=== PATIENT | female | born 1980 | race Caucasian/White ===

== ENCOUNTER → 2017-08-23 15:40 | Outpatient (CLI) | payer MEDICAID, SELFPAY ==
[2017-07-03 13:20] VITALS: BP 123/78; BP 125/88
[2017-08-06 07:24] VITALS: BMI 29.6
[2017-08-06 08:50] VITALS: BP 119/85
--- NOTE | 2017-08-23 15:42 | CT_ITS ---
STUDY: CT ABDOMEN AND PELVIS WITH CONTRAST REASON FOR EXAM: Female, 37 years old. Lower abdominal pain and bloating RADIATION DOSAGE (If Supplied By Facility): CTDIvol = ( 15.20 ) mGy, DLP = ( 1074.54 ) mGycm TECHNIQUE: Transaxial images were obtained from the dome of the diaphragm to the symphysis pubis without oral contrast. 100 ml of Isovue 300 contrast was administered. Sagittal and coronal images were reconstructed. Individualized dose optimization techniques were used for this CT. COMPARISON: None. FINDINGS: The visualized lung bases are unremarkable. The visualized portions of the heart are within normal limits. Normal liver. Normal gallbladder and extrahepatic biliary system. Granulomatous calcification in the spleen. Normal pancreas. Normal bilateral adrenal glands. Normal right kidney. Normal left kidney. Normal visualized stomach. Normal small intestine. Normal colon. The appendix is visualized and appears normal. Normal abdominal aorta. Possible 1.6 cm calcified aneurysm of splenic artery. Normal inferior vena cava. Normal retroperitoneum. Normal urinary bladder. Mild endometrial thickening/fluid. There is evidence of tubal ligation. There is a left adnexal 1.9 cm cystic nodule. Normal abdominal wall. Normal osseous structures. CT/Abdomen/Pelvis WITH Contrast IMPRESSION: Mild endometrial thickening/fluid. Possible calcified aneurysm of the splenic artery. Left adnexal cystic nodule. Correlate with ultrasound if needed. Electronically Signed: Nicola Patel DO at 11:32 EST Tel [phone], Service support ,
== END ==
PROVIDERS: Visit Provider Surgery
DX: R93.8 Abnormal findings on diagnostic imaging of other specified body structures (principal); R19.09 Other intra-abdominal and pelvic swelling, mass and lump; R10.32 Left lower quadrant pain; R19.7 Diarrhea, unspecified
CPT/HCPCS: 74177; Q9967

== ENCOUNTER 2018-01-14 13:46 | Emergency (ER) | payer MEDICAID, SELFPAY ==
[2018-01-14 13:47] VITALS: BP 130/84; PULSE 74; RESP 16; TEMP 36.9; O2SAT 99; BMI 30.2
--- NOTE | 2018-01-14 13:59 | RAD_ITS ---
STUDY: X-RAY - LEFT ANKLE REASON FOR EXAM: Female, 37 years old. Increasing lateral ankle pain. TECHNIQUE: 3 view(s) of the ankle. COMPARISON: None. FINDINGS: Normal visualized distal tibia and fibula. Normal medial and lateral malleoli. Normal tibiotalar articulation and ankle mortise. Normal visualized talus and calcaneus. The visualized subtalar, talonavicular, calcaneocuboid and tarsal articulations are normal. The soft tissue structures are unremarkable. RAD/Ankle min 3 Views IMPRESSION: Normal x-ray examination of the ankle. Electronically Signed: Rashawn Marie MD at 14:38 EDT Tel [phone], Service support ,
--- NOTE | 2018-01-14 14:25 | ED.DCSUM_ITS ---
- ER Visit Summary Date of Service: 01/14/18 Chief Complaint: Left ankle pain History of Present Illness: The patient is a 37 F with no primary care physician. She reports that she has had problems with her left ankle off and on for the past years since tripping over a tree stump. She reports that 2 days ago she worked for 7 hours and then was on her feet all night at a concert. She reports that she woke up at 4:00 in the morning yesterday and had sharp pain in her left ankle. States it is 8 out of 10 with walking and she is pain-free at rest. She taken ibuprofen as well. She denies any known injury. No fall or MVA. Physical Examination: Vitals: Stable. Afebrile. General: Well-nourished and well-developed. Head: Normocephalic atraumatic. Neck: Supple, no lymphadenopathy. No JVD. Nontender. Cardiovascular: Regular rate and rhythm. No murmurs. Respiratory: No respiratory distress. Clear to auscultation bilaterally. Abdominal: Soft, nontender, nondistended, normal bowel sounds. No guarding, rebound, or peritoneal signs. Back: Nontender. Extremities: Mild tenderness palpation to both the medial lateral malleoli. No soft tissue swelling. No contusion. 2+ dorsalis pedis pulse. Skin: Normal color, no rash. Neurologic: Alert and oriented ?3. Cranial nerves II through XII are intact. Normal strength and sensation. Psych: Normal affect. Test Results: Ankle x-ray is negative. Emergency Department Course and Treatment: Patient was treated with naproxen and is resting comfortably. Treatment Plan: Patient will be discharged naproxen. Instructed follow-up Dr. Zafar in 1 week if not improving. Disposition: To home in improved and stable condition. Impression: 1. Left ankle sprain. This note was generated with [employer] dictation software. It may contain incorrect words, spelling, and punctuation that were not noted in review of the chart prior to signing ED Disposition - Plan for ED Patient: Chief Complaint: Lower Extremity Injury Instructions: ED Sprain Ankle W X Ray Prescriptions: Naproxen [Naprosyn] 500 mg PO BID #14 tablet Referrals: Jed Zafar DPM [STAFF PHYSICIAN] - 1 Week if not improving
== END 2018-01-14 14:40 | disposition home or self-care (01) ==
PROVIDERS: Emergency Provider Emergency Medicine
DX: S93.402A Sprain of unspecified ligament of left ankle, initial encounter (principal); W22.8XXA Striking against or struck by other objects, initial encounter; Y93.9 Activity, unspecified; Y92.9 Unspecified place or not applicable
CPT/HCPCS: 73610; 99282

== ENCOUNTER 2018-07-11 23:41 | Emergency (ER) | payer MEDICAID, SELFPAY ==
[2018-07-11 23:42] VITALS: BP 119/80; PULSE 73; RESP 16; TEMP 36.2; O2SAT 100; BMI 31.0
--- NOTE | 2018-07-12 00:25 | RAD_ITS ---
HISTORY: PT WITH LEFT FOOT SWELLING AND PAIN. INJURY 2 YEARS AGO. UNABLE TO APPLY PRESSURE WITHOUT PAIN. COMPARISON: 01/14/2018 FINDINGS: XR left Ankle Min 3 Views: With comparison to previous, no significant change. No fracture, dislocation, or acute osseous abnormality. The tibiotalar joint space appears preserved. As visualized, the soft tissues are unremarkable. RAD/Ankle min 3 Views IMPRESSION: Normal left ankle. No significant change. at 0104 Reported and signed by: Hamzah Blankenship MD Electronically Signed: Hamzah Blankenship, at 1:03 EST Tel , Service support ,
--- NOTE | 2018-07-12 01:17 | ED.VISSUMM ---
- ER Visit Summary Date of Service: 07/12/18 Chief Complaint:Left foot pain History of Present Illness: The patient is a 38 F who presents with left foot pain. She states she injured it 2 years ago and has had chronic pain ever since then. She states that she had x-rays 2 years ago but has not been seen since that time. However review of records show a visit in January she did have an x-ray of her ankle at that time. She states that over the past couple of days she has had increased sharp pain in her left foot and it is difficult to bear weight. No recent injury. Review of systems otherwise negative. Physical Examination: Afebrile vitals are normal Moist mucous membranes Heart regular rate and rhythm No respiratory rest Patient has pain on palpation of the anterior left ankle she has no foot tenderness no soft tissue swelling she does have active full range of motion she has brisk capillary refill normal sensation light touch in a palpable dorsalis pedis pulse Test Results: Left ankle x-ray is normal Emergency Department Course and Treatment: Although patient describes her symptoms as left foot pain her tenderness in the area she indicates her pain is actually her anterior ankle. Ankle x-ray normal as above. Given that she reports it is difficult to bear weight due to pain she was given crutches. She was given a prescription for naproxen. She stands to return for new or worsening symptoms and was discharged. Treatment Plan: [] Disposition: Discharge Impression: Chronic left ankle pain This note was generated with [employer] dictation software. It may contain incorrect words, spelling, and punctuation that were not noted in review of the chart prior to signing ED Disposition - Plan for ED Patient: Chief Complaint: Lower Extremity Injury Referrals: Care Physician,No Primary [Primary Care Provider] -
--- NOTE | 2018-07-12 01:19 | ED.DEP ---
ED Disposition - Plan for ED Patient: Chief Complaint: Lower Extremity Injury Instructions: ED Chronic Pain Management Prescriptions: Naproxen [Naprosyn] 500 mg PO BID #14 tab Referrals: Care Physician,No Primary [Primary Care Provider] -
[2018-07-12 01:35] VITALS: PULSE 83; RESP 16; O2SAT 98
== END 2018-07-12 01:37 | disposition home or self-care (01) ==
PROVIDERS: Emergency Provider Emergency Medicine
DX: M25.572 Pain in left ankle and joints of left foot (principal); G89.29 Other chronic pain
CPT/HCPCS: 73610; 99282

== ENCOUNTER 2020-12-10 17:56 | Emergency (ER) | payer SELFPAY ==
[2020-12-10 17:57] VITALS: BP 138/88; PULSE 76; RESP 16; TEMP 36.3; O2SAT 98; BMI 29.0
--- NOTE | 2020-12-10 18:16 | EX.ED.DYSGE1 ---
HPI History of Present Illness Chief Complaint: Dizziness Narrative Narrative: Patient presenting with vertiginous symptoms. She states she has a history of vertigo. She did not take any medicine prior to arrival. She describes her dizziness as vertiginous in nature. Is worse with head turning. She denies any head trauma. Patient does admit to recent congestion and sore throat. He has not had any fever or chills. She denies loss of taste or smell. She denies fevers. Patient states she has no history of seasonal allergies. [facility] Medical History hemorrhoid Rectal bleed Home Medications naproxen 500 mg PO BID #14 tab 01/14/18 [Rx Last Taken Unknown] naproxen 500 mg PO BID #14 tab 07/12/18 [Rx Last Taken Unknown] meclizine 25 mg PO TID PRN #20 tab 12/10/20 [Rx Last Taken Unknown] Allergy/AdvReac Type Severity Reaction Status Date / Time acetaminophen [From Percocet] Allergy Unknown Verified 12/10/20 17:57 oxycodone [From Percocet] Allergy Unknown Verified 12/10/20 17:57 latex Allergy Mild Rash Uncoded 12/10/20 17:57 Family History Mother Asthma Diabetes CAD (coronary artery disease) Surgical History history of essure Social History Smoking Status: Current every day smoker alcohol intake: current alcohol intake frequency: 3 or more drinks per day Alcohol type: beer details: at least 10 beers per day ROS ROS ED Constitutional Constitutional ED: Denies chills, fever(s) or sweats Eyes Eyes: Denies blurry vision or change in vision ENT ENT ED: Reports sore throat and other Details: Nasal congestion ; Denies ear pain Cardiovascular Cardiovascular: Denies chest pain, palpitations or racing heartbeat Respiratory/Chest Respiratory/Chest: Denies cough, dyspnea or sputum Gastrointestinal Gastrointestinal: Denies abdominal pain, constipation, diarrhea, nausea or vomiting Genitourinary Genitourinary ED: Denies dysuria, hematuria or urinary frequency Musculoskeletal Musculoskeletal: Denies arthralgias, myalgias or neck pain Integumentary Denies abscess, Abrasions or rash Neurologic Neurologic: Denies headache(s), paresthesias or weakness Psychiatric Psychiatric: Denies anxiety, depression, suicidal ideation or suicidal thoughts Endocrine Endocrinology: Denies polydipsia or polyuria EXAM Physical Exam Const Vital Signs: 12/10/20 17:57 Temperature 97.3 F L Temperature Source Temporal Pulse Rate 76 Respiratory Rate 16 Blood Pressure 138/88 H Blood Pressure Mean 104 Pulse Ox 98 Oxygen Delivery Method Room Air Positive well nourished General Appearance ED: NAD; Negative for pallor HEENT Reports normocephalic, head/scalp atraumatic, TM's clear and moist mucous membranes HEENT Narrative: Oropharynx is patent without stridor. There is no posterior oropharyngeal erythema. There are no exudates. Tympanic Membrane ED: Yes TM's clear Eyes PERRL and EOMs intact bilaterally Eyes Narrative: Nystagmus noted with Zak-Hallpike maneuver. Patient symptomatic. Neck no lymphadenopathy and supple Resp normal respiratory effort and clear to auscultation bilaterally Auscultation: Negative for rales, rhonchi or wheezes Cardio regular rate and regular rhythm GI normal to inspection, nondistended, normoactive bowel sounds and non-distended Auscultation: normoactive bowel sounds Palpation: soft Narrative: Deferred Extremity normal to inspection General Extremety ED: Yes edema and tenderness General Extremity: edema Neuro oriented x3 and CN's II-XII intact bilaterally Sensorium / Orientation: alert Motor Exam: strength 5/5 throughout Psych mental status grossly normal Attitude: No agitated Skin no rashes or lesions noted and no wounds General Skin Exam: Negative for jaundice or pallor MDM MDM MDM Narrative Medical decision making narrative: Patient seen and evaluated for dizziness which is vertiginous in nature. This is reproducible with Zak-Hallpike maneuver. Given patient's constellation of nasal congestion, hoarse voice, sore throat I suggested to her that she might have seasonal allergies however she adamantly denies this. She is given Phenergan and meclizine in the ED. She does not want to stay. She stated to please give her a prescription and she wants to go home. Impression: 1. Benign positional vertigo 2. Laryngitis Discharge Plan Triage Chief Complaint: Dizziness ED Provider: Laz Wilson Dx/Rx/DC Orders Instructions: ED Vertigo, Unspecified Prescriptions: New meclizine 25 mg tablet 25 mg PO TID PRN (Reason: dizziness) Qty: 20 RF: 0 No Action naproxen 500 MG tablet 500 mg PO BID Qty: 14 RF: 0 naproxen 500 MG tablet 500 mg PO BID Qty: 14 RF: 0 Primary Care Provider: Care Physician,No Primary Referrals: Genoveva Maciel DO [STAFF PHYSICIAN] - As Needed Care Physician,No Primary [Primary Care Provider] - Disposition Disposition: Home, self care
[2020-12-10] MEDS: Meclizine HCl 25 MG Tablet PO (18:20)
[2020-12-10] MEDS: proMETHazine 25 MG Tablet PO (18:20)
== END 2020-12-10 18:34 | disposition home or self-care (01) ==
LOC: ED 18:33
PROVIDERS: Emergency Provider Student in an Organized Health Care Education/Training Program
DX: H81.10 Benign paroxysmal vertigo, unspecified ear (principal); J04.0 Acute laryngitis; F17.200 Nicotine dependence, unspecified, uncomplicated
CPT/HCPCS: 99283